=== PATIENT | female | born 1990 | race Caucasian/White ===

== ENCOUNTER 2017-05-06 09:35 | Emergency (ER) | payer OTHER ==
[~2017-05-06] VITALS: Ht 162.6 cm; Wt 108.5 kg
[2017-05-06] MEDS ORDERED: METFORMIN HCL1000 M3 PO (11:15)
[2017-05-06] MEDS ORDERED: TOPAMAX100 MG PO (11:15)
[2017-05-06] MEDS ORDERED: ADIPEX-P37.5 MG PO (11:16)
[2017-05-06] MEDS ORDERED: FLEXERIL10 MG PO (15:59)
[2017-05-06] MEDS ORDERED: NAPROSYN500 MG PO (15:59)
[2017-05-06] MEDS ORDERED: ULTRAM50 MG PO (15:59)
[2017-05-06 16:22] VITALS: BP 116/51
== END 2017-05-06 16:23 | disposition home or self-care (01) ==
LOC: EME 09:35
DX: M54.16 Radiculopathy, lumbar region (principal); M51.37 Other intervertebral disc degeneration, lumbosacral region
CPT/HCPCS: 72131; 99281; 99284; J1100; J1885